=== PATIENT | male | born 1930 | race Caucasian/White ===

== ENCOUNTER 2022-03-24 08:34 | Inpatient (IN) | payer OTHER ==
[~2022-03-24] VITALS: Ht 177.8 cm; Wt 81.7 kg
[2022-03-24 10:09] LABS: Alanine Aminotransfer (ALT/SGP 371 U/L (12-78); Albumin, Blood 3.3 g/dL (3.4-5.0); Albumin/Globulin Ratio 0.9 (0.8-1.8); Alk Phos 787 U/L (50-136); Anion Gap 6 mmol/L (6-16); Aspartate Aminotrans (AST/SGOT 411 U/L (12-37); Bilirubin, Total 1.7 mg/dL (0.1-1.0); Blood Urea Nitrogen 33 mg/dL (8-24); Bun/Creatinine Ratio 35.1 (12.0-20.0); CO2, Blood 26 mmol/L (21-32); Calcium, Blood 8.7 mg/dL (8.5-10.1); Chloride, Blood 104 mmol/L (98-108); Creatinine, Blood 0.94 mg/dL (0.60-1.20); Globulin, Blood 3.8 g/dL (2.2-4.0); Glomerular Filtration Rate >60 (60-); Glucose, Blood 101 mg/dL (70-99); Sodium, Blood 136 mmol/L (136-145); Total Protein, Blood 7.1 g/dL (6.4-8.2)
[2022-03-24 10:10] LABS: BASOPHILS ABSOLUTE AUTO 0.06 K/mm3 (0.00-0.23); BASOPHILS PERCENT AUTO 1 % (0-2); EOSINOPHILS ABSOLUTE AUTO 0.05 K/mm3 (0.00-0.68); EOSINOPHILS PERCENT AUTO 0 % (0-6); Hematocrit 39.3 % (37.0-53.0); Hemoglobin 13.4 g/dL (13.5-17.5); IMMATURE GRAN ABSOLUTE AUTO 0.06 K/mm3 (0.00-0.10); IMMATURE GRAN PERCENT AUTO 1 % (0-1); LYMPHOCYTES ABSOLUTE AUTO 0.85 K/mm3 (0.84-5.20); LYMPHOCYTES PERCENT AUTO 7 % (21-46); MONOCYTES ABSOLUTE AUTO 1.47 K/mm3 (0.16-1.47); MONOCYTES PERCENT AUTO 11 % (4-13); Mean Corpuscular HGB 30.3 pg (26.0-34.0); Mean Corpuscular HGB Conc 34.1 g/dL (31.5-36.5); Mean Corpuscular Volume 89 fL (80-100); Mean Platelet Volume 11.3 fL (9.1-12.4); NEUTROPHILS ABSOLUTE AUTO 10.47 K/mm3 (1.96-9.15); NEUTROPHILS PERCENT AUTO 81 % (41-73); Platelet Count 253 K/mm3 (150-400); RDW Coefficient Variation 14.7 % (11.7-14.2); RDW Standard Deviation 48.1 fL (35.1-46.3); Red Blood Cell Count 4.42 M/mm3 (4.30-5.90); White Blood Cell Count 12.96 K/mm3 (4.00-11.30)
[2022-03-24 13:38] LABS: Source, Urine Clean Catch
[2022-03-24 13:59] LABS: Bilirubin, Urine Neg (Neg); Blood, Urine 1+ (Neg); Glucose Qualitative, Urine Neg (Neg); Ketones, Urine 1+ (Neg); Leukocyte Esterase, Urine Neg (Neg); Nitrite, Urine Neg (Neg); Protein, Urine 1+ (Neg); Urobilinogen, Urine 1+ (Normal)
[2022-03-24 14:15] LABS: Appearance, Urine Hazy (Clear); Color, Urine Yellow (P-Yellow)
[2022-03-24 14:18] LABS: Bacteria Not Seen /hpf; Squamous Epithelial Cells Few /hpf (Few); White Blood Cells, Urine Not Seen /hpf (0-5)
[2022-03-24] MEDS ORDERED: ZOCOR20 MG PO (18:38)
[2022-03-24] MEDS ORDERED: MULTIPLE VITAM1 EACH PO (18:39)
--- NOTE | 2022-03-24 19:23 | NUR ---
SHIFT SUMMARY PT ARRIVED ON THE UNIT AT APPROXIMATELY 1815 FROM ER, ABLE TO TRANSFER TO HIS BED c MINIMAL ASSISTANCE, REPORTS NO PAIN AT THIS TIME, REQUESTING WATER. ADMISSION COMPLETED, REPORT GIVEN TO BRADY MOBLEY.
--- NOTE | 2022-03-24 21:16 | NUR ---
SCD ORDER REVIEWED NO CURRENT ORDER.
--- NOTE | 2022-03-25 00:36 | NUR ---
ASSESSMENT PERFORMED ALONGSIDE FILAMENT TESTER. AGREE W/FILAMENT TESTER'S DOCUMENTED ASSESSMENT.
--- NOTE | 2022-03-25 04:20 | NUR ---
SHIFT SUMMARY PT NEW ADMIT AT SHIFT CHANGE. PT KAIBAB, HAS HEARING AIDES ON TABLE IN CUP. PT HAS BEEN NPO SINCE 0000 FOR SURGERY IN THE AM. AOX4, SBA, PLEASANT COOPERATIVE WITH CARE. NO ACUTE EVENTS THIS SHIFT. VSS. PT REPORTED MINMAL PAIN RELIEVED WITH POSITIOING. FLUIDS RUNNING, R AC IV. USES CALL LIGHT APROPRIATELY, URINAL AT THE BEDSIDE. WILL CONTINUE TO MONITOR.
[2022-03-25 04:51] LABS: Hematocrit 33.7 % (37.0-53.0); Hemoglobin 11.4 g/dL (13.5-17.5); Mean Corpuscular HGB 30.2 pg (26.0-34.0); Mean Corpuscular HGB Conc 33.8 g/dL (31.5-36.5); Mean Corpuscular Volume 89 fL (80-100); Mean Platelet Volume 10.8 fL (9.1-12.4); Platelet Count 214 K/mm3 (150-400); RDW Coefficient Variation 14.7 % (11.7-14.2); RDW Standard Deviation 48.1 fL (35.1-46.3); Red Blood Cell Count 3.78 M/mm3 (4.30-5.90)
[2022-03-25 05:20] LABS: Anion Gap 7 mmol/L (6-16); Blood Urea Nitrogen 32 mg/dL (8-24); Bun/Creatinine Ratio 29.6 (12.0-20.0); CO2, Blood 23 mmol/L (21-32); Calcium, Blood 7.6 mg/dL (8.5-10.1); Chloride, Blood 105 mmol/L (98-108); Creatinine, Blood 1.08 mg/dL (0.60-1.20); Glomerular Filtration Rate >60 (60-); Glucose, Blood 91 mg/dL (70-99); Potassium, Blood 4.8 mmol/L (3.5-5.5); Sodium, Blood 135 mmol/L (136-145)
--- NOTE | 2022-03-25 07:20 | NUR ---
PT VSS T/O NIGHT. PT DENIED ABD PAIN/N/V. IS VOIDING URINE PER BASELINE. PT HAS BEEN NPO POST MIDNIGHT FOR PLAN FOR SURGERY TODAY. PT REPOSITIONS SELF IN BED, SBA W/CANE OOB.
--- NOTE | 2022-03-25 10:23 | NUR ---
pt vomited after administration of oxycodone. medication disposed of.
--- NOTE | 2022-03-25 11:32 | NUR ---
RN STUDENT NOTE: CALLED DR PINEDA FOR PTS PAIN AND DISCOMFRT. PRN MEDS GIVEN PER EMAR. SUPPOSITORY GIVEN AND PT PASSED GAS 15 MIN AFTER. NO BM YET. NO CHANGE IN DISCOMFORT AT THIS TIME. WILL CONTINUE TO MONITOR.
--- NOTE | 2022-03-25 12:51 | NUR ---
PRN PAIN MED GIVEN PER EMAR. PT IS RESTING IN HIS ROOM W/O COMPLAINTS OF PAIN. WILL CONTINUE TO MONITOR.
--- NOTE | 2022-03-25 13:40 | NUR ---
Pt resting in bed upon arrival. Pt is A&OX4 and reports a tolerable 2/10 pain in his abdomen. Pt denies dyspnea and anxiety. Assessed Pt's understanding of current health issues. Listened as Pt discusses finding of potential cancer. Pt reports living a good long life and does not have any concerns regarding potential diagnosis. He reports if there are cancer treatments available he is willing to give it a try. He states if unable to tolerate treatment or becomes to painful then he plans to do hospice. Continued therapeutic listening. Pt reports living alone in [place] and does not having support close by. He reports his daughter has offered him to live with her but states he does not want to be a burden. Continued therapeutic listening. Discussed wishes for CPR and intubations. Pt states he does not want any heroic measures, and does not want CPR or intubation. Assisted Pt with completing POLST per his request. Pt gives this RN verbal permission to call his daughter Cindy to discuss case further. No other concerns reported at this time. Spoke with Dr Bradshaw and discussed case. Placed DNR order in [facility] per V/O from Dr Bradshaw. Palliative Care will obtain copy of POLST upon hospitalist signature and deliver to medical records.
--- NOTE | 2022-03-25 13:54 | NUR ---
PALLIATIVE CARE IN TO TALK WITH PT. PT UNDERSTANDING OF HIS POTENTIAL PROGNOSIS. WANTS TO BE CHANGED TO DNR. HIS MAIN WORRIES ARE ABOUT PAIN MANAGEMENT AND BEING A BURDEN TO HIS DAUGHTER.
--- NOTE | 2022-03-25 18:05 | NUR ---
Shift Summary: Pt came in for cholecystitis, not operable at this time due to potential cancer on galbladder, liver, abd wall, pancreas. Dr. Ferrera and Dr. Bradshaw to come up with care plan after results of biopsy and CT/MRI scans are back. Pt having occasional pain but will not ask for pain meds b/c he feels like a burden. He will take when offered. POLST filled out, changed to DNR, not having anxiety r/t diagnosis, pt states he is a peace with it. Sleeping off and on after pain managed. Not wanting to take anything PO, it exaserbates his pain and bloating. IV 0.9% NS hung and running.
--- NOTE | 2022-03-25 18:36 | NUR ---
THIS RN DID ASSESSMENT WITH STUDENT NURSESHAHRAM. AGREE WITH NOTES AND ASSESSMENTS.
--- NOTE | 2022-03-25 19:47 | NUR ---
TEMP: TEMP 101.8. COOL CLOTH PROVIDED. PT UNABBLE TO JEY ANY PO INTAKE. CALL PLACED TO HOSPITALIST, NEW ORDER FOR NM TYLENOL AND TO INC IVF TO 75ML/HR
--- NOTE | 2022-03-26 04:37 | NUR ---
SHIFT SUMMARY, PATIENT IS A/OX4, STATES "NO PAIN IF I DO NOT MOVE OR EAT," DENIES NEED FOR PAIN MEDICATION WHEN OFFERED. PATIENT HAD A 101.3 TEMP AND WAS MEDICATED WITH TYLENOL SUPPOSITORY, REASSESSED AT 98.8 WITH ORAL THERMOMETER. NO PO INTAKE THIS SHIFT DUE TO INCREASED NAUSEA AND PAIN DECLINED ALL PO MEDICATIONS DUE TO NAUSEA/PAIN. PATIENT ABLE TO VOID IN URINAL AT BEDSIDE, DARK COLORED URINE. ABSENT BOWEL SOUNDS ON ASSESSMENT, NO BM THIS SHIFT. OXYGEN PLACED TO MAINTAIN SATS ABOVE 90. PULSE OX IN PLACE. PATIENT REPOSITIONS SELF IN BED, USES CALL LIGHT APPROPRIATELY, VSS, WILL REPORT TO AM NURSE.
[2022-03-26 05:11] LABS: BASOPHILS ABSOLUTE AUTO 0.05 K/mm3 (0.00-0.23); BASOPHILS PERCENT AUTO 0 % (0-2); EOSINOPHILS PERCENT AUTO 1 % (0-6); Hemoglobin 11.8 g/dL (13.5-17.5); IMMATURE GRAN ABSOLUTE AUTO 0.06 K/mm3 (0.00-0.10); IMMATURE GRAN PERCENT AUTO 1 % (0-1); LYMPHOCYTES ABSOLUTE AUTO 0.77 K/mm3 (0.84-5.20); LYMPHOCYTES PERCENT AUTO 7 % (21-46); MONOCYTES PERCENT AUTO 14 % (4-13); Mean Corpuscular HGB 30.3 pg (26.0-34.0); Mean Corpuscular HGB Conc 33.7 g/dL (31.5-36.5); Mean Corpuscular Volume 90 fL (80-100); Mean Platelet Volume 11.3 fL (9.1-12.4); NEUTROPHILS PERCENT AUTO 77 % (41-73); Platelet Count 238 K/mm3 (150-400); RDW Coefficient Variation 14.5 % (11.7-14.2); RDW Standard Deviation 47.8 fL (35.1-46.3); White Blood Cell Count 11.78 K/mm3 (4.00-11.30)
[2022-03-26 05:47] LABS: Albumin, Blood 2.4 g/dL (3.4-5.0); Albumin/Globulin Ratio 0.8 (0.8-1.8); Bilirubin, Total 1.7 mg/dL (0.1-1.0); Bun/Creatinine Ratio 23.4 (12.0-20.0); Calcium, Blood 7.8 mg/dL (8.5-10.1); Creatinine, Blood 1.24 mg/dL (0.60-1.20); Globulin, Blood 2.9 g/dL (2.2-4.0); Potassium, Blood 4.6 mmol/L (3.5-5.5); Total Protein, Blood 5.3 g/dL (6.4-8.2)
--- NOTE | 2022-03-26 11:51 | NUR ---
Supportive visit this AM. Pt resting in bed upon arrival. Pt reports tolerating some PO intake. Offered therapeutic listening as Pt reports anticipation of biopsy. Reviewed plan of care with Pt. Pt reports pain in abdomen is starting to increase and is now 5/10. Ended visit to allow Pt to rest. Spoke with Primary RN Elliott and discussed case. Relayed Pt's pain. Palliative Care will remain available.
--- NOTE | 2022-03-26 14:49 | NUR ---
SHIFT SUMMARY: PT HAS BEEN NPO SINCE THIS MORNING AWAITING LIVER BIOPSY. BEFORE NPO STATUS, PATIENT WAS HANDELING JUICE, PO MEDICATION, AND WATER WELL AFTER BEING MEDICATED FOR PAIN. PT URINATING INDEPENDTLY WITH URINAL. URINE IS STARTING TO LIGHTEN. INTERMITTENT ABD PAIN RELIEVED WELL WITH IV DILAUDID. IV FLUIDS AND ANTIBIOTICS INFUSING SCHEDULED.
--- NOTE | 2022-03-26 16:10 | NUR ---
ASSUMED CARE OF PT FROM ITZ NEGRO.
--- NOTE | 2022-03-26 17:13 | NUR ---
COMFORT CARE PT TRANSITIONING TO COMFORT CARE PER ORDERS. MEDICATED PER ORDERS FOR PAIN. COOL COMPRESS PLACED TO FOREHEAD FOR FEVER. PT REC'D TYLENOL PER ORDERS EARLIER (SEE EMAR). PT RESTING W/EYES CLOSED. CALL LIGHT IN REACH.
--- NOTE | 2022-03-26 21:40 | NUR ---
PT HAS HAD TEMP WITH ROOM HEAT TURNED DOWN AND COOL CLOTH TO FOREHEAD.CONTINUED TO MONITOR AND TEMP STILL UP.GAVE TYLENOL PO.CONTINUED TO KEEP HEAT IN ROOM OFF AND REMOVED BLANKET FROM PT LEAVING SHEET FOR COVERING PER PT OK. PT REPORTS HAS BEEN SLEEPING COMFORTABLY.WILL CONT TO MONITOR COMFORT AND TEMPS.
--- NOTE | 2022-03-26 22:28 | NUR ---
PT TEMP DOWN TO 100.2 CONTINUED TO KEEP HEAT OFF AND BLANKETS OFF SAME WITH LAST CHECK.CONT COMFORTABLE.
--- NOTE | 2022-03-27 01:08 | NUR ---
PT REPORTING ROXINAL INEFFECTIVE FOR PAIN.ALSO STATES INITIALLY HAD BRIEF NAUSEA. DOES NOT WANT TO TAKE FURTHER ROXINAL.MED WITH DILAUDID 1 MG IV ONLY DUE TO RECENT DOSING OF ROXINAL.DENIES NAUSEA.
--- NOTE | 2022-03-27 03:34 | NUR ---
PT RECEIVED PERSONAL CARE AT 0315.DOMINGO AREA AND BOTTOM WASHED,UNDERWEAR TO CLEAN PULL UP,CHANGED GOWN.
--- NOTE | 2022-03-27 05:58 | NUR ---
SUMMARY PT VERB EFFECTIVE PAIN CONTROL WITH USE OF DILAUDID.
--- NOTE | 2022-03-27 08:20 | NUR ---
INSERTED MENDEZ CATH PT WAS UNABLE TO VOID, BS SHOWED 433 ML. PLACED 14F COUDE CATHETER, MAINTAINING STERILE TECHNIQUE. CATHETER DRAINING MARTÍNEZ COLORED URINE. PT TOLERATED WELL. DAUGHTER AT BEDSIDE.
--- NOTE | 2022-03-27 10:11 | NUR ---
Comfort Care Visit Multiple visits this AM. Supportive visit for Pt and daughter Cindy who is at bedside. Listened as Pt reports [facility] close to his daughter. Pt reports being at peace with his decision. Pt reports limitations of PO intake and pain occurs. Pt medicated for comfort. Assisted with completing new POLST for DNR and Comfort Measures Only. Daughter Cindy is in agreement with plan of care and goal for placement near her. Spoke with Caremanager Annalise and relayed Pt's wishes. Spoke with Primary RN Chelsea and discussed case. Palliative Care will remain available for symptom management and supportive visits.
--- NOTE | 2022-03-27 16:05 | NUR ---
pt sleeping RESPIRATIONS E/U.
--- NOTE | 2022-03-27 17:12 | NUR ---
SUMMARY PT COULD NOT VOID THIS AM AND BS SHOWED OVER 400 ML, PLACED MENDEZ PER ORDERS AND IS DRAINING MARTÍNEZ YELLOW URINE. PT MEDICATED PER ORDERS FOR PAIN THIS AM AND HAS SLEPT T/O DAY. DOES NOT APPEAR TO BE IN ANY DISTRESS. DAUGHTER IN TODAY, STATED WILL RETURN TOMORROW.
--- NOTE | 2022-03-28 01:34 | NUR ---
PT HAVING ANXIETY WELLL PAIN.PT IS HAVING SOME APNEA NOTED WITH HIGHER DOSES DILAUDID ,BUT NEEDING MEDS FOR COMFORT.I CALLED DR SOLITARIO AND RECEIVED ORDER FOR ATIVAN FOR ANXIETY.ALTHOUGH PT IS COMFORT CARE ORDERED, I DISCUSSED WITH DOCTOR MY CONCERNS REGARDING APNEA PERIODS AND CONCERNS DAUGHTER MAY NEED TO BE CALLED TO MAKE AWARE OF RISK TO RESPIRATIONS IN REGARDS TO MEDS FOR COMFORT. DOCTOR AGREED FOR CALL TO DAUGHTER.PT ALSO WANTED TO HAVE DAUGHTER CALLED. I CALLED DAUGHTER GUANAKITO AND ADVISED OF IMMEDIATE RISKING CEASE OF BREATHING WITH MEDS. DRAGAN VERB UNDERSTANDING OF RISK AND IS ACCEPTING OF RISK AND FEELS IT IS MOST IMPORTANT TO KEEP PT COMFORTABLE. MED IV WITH ATIVAN.PT REPORTED FEELING BETTER,NOW SLEEPING SNORING.WAITING DAUGHTER ARRIVAL TO BEDSIDE.
--- NOTE | 2022-03-28 06:44 | NUR ---
SUMMARY PTS DAUGHTER AT BEDSIDE WHILE PT SLEEPING.PT NOW AWAKE.HAS SO FAR DECLINED FURTHER MEDS.
--- NOTE | 2022-03-28 08:06 | NUR ---
PATIENT REPORTED "WANTING MY MEDS!" THIS MORNING. BOOSTED PATIENT IN BED AND GAVE 0.5 OF ATIVAN IV. PATIENT HAS BEEN ASLEEP WITH EVEN/EQUAL RESPIRATIONS. CALL LIGHT WITHIN REACH. DAUGHTER AT BEDSIDE.
--- NOTE | 2022-03-28 17:36 | NUR ---
PATIENT IS ASLEEP WITH EVEN/EQUAL RESPIRATIONS. DAUGHTER AT BEDSIDE AND STATED "I DON'T THINK HE NEEDS ANYTHING AT THIS TIME. HE SEEMS TO BE COMFORTABLE". CALL LIGHT WITHIN REACH.
--- NOTE | 2022-03-28 17:41 | NUR ---
PATIENT IS ASLEEP WITH EVEN/EQUAL RESP. DAUGHTER AT BEDSIDE AND STATED "I DON'T THINK HE NEEDS ANYTHING AT THIS TIME". CALL LIGHT WITHIN REACH.
--- NOTE | 2022-03-28 17:42 | NUR ---
SHIFT SUMMARY: COMFORT CARE PATIENT SEEMS TO BE MOST COMFORTABLE WITH 0.5 OF ATIVAN AND 2MG OF DILAUDID FOR PAIN. MENDEZ IS DRAINING PER GRAVITY WITH DARK COLORED URINE. PATIENT WAS GIVEN A BED BATH BY THIS NURSE AND THE ASSEMBLER FAUCETS. PATIENT TOLERATED ROLLING SIDE TO SIDE WELL. PATIENT IS [place] SPEAKING IN A DEEPER VOICE OR GETTING CLOSE TO HIS EAR IS BEST FOR HIM. DAUGHTER WAS AT HIS BEDSIDE FOR MOST OF THE SHIFT. SHE SAID SHE WOULD BE BACK IN THE MORNING. PATIENT IS RESTING IN BED WITH CALL LIGHT IN REACH.
--- NOTE | 2022-03-28 17:42 | NUR ---
PATIENT IS ASLEEP WITH EVEN/EQUAL RESP. CALL LIGHT WITHIN REACH.
--- NOTE | 2022-03-29 04:08 | NUR ---
SHIFT SUMMARY NO ACUTE CHANGES OVERNIGHT. PT APPEARS PAINFUL INTERMITTENTLY. HE WOULD MOAN WHEN EXPRESSING PAIN. HE ANSWERS APPROPRIATELY, WITH SOME CONFUSION INTERMITTENTLY. AO TO SELF. PAIN MANAGED WITH DILAUDID WITH 1-2MG. KPAD PLACED IN ABD WELL TO RELIEF PAIN. REPOSITIONED Q2. O2 NASAL CANNULA SET TO 9-10L FOR COMFORT. URINE REMAIN DARK [place]. SAT UP WHEN ATTEMPTING TO DRINK WATER DUE TO RISK ASPIRATION. PT TENDS TO COUGH WHEN SWALLOW. LEMON SWAB WITH ICE WATER AND ORAL SPONGE TO MOISTEN MUCOSA. WHEN PT TRIES TO CLEAR THROAT, TENDS TO COUGH AND PAIN INCREASES. WILL CONTINUE TO MONITOR PT. AND PROVIDE COMFORT UNTIL WE HAVE A PLACEMENT FOR HIM (HOSPICE). WILL PROVIDE REPORT TO ONCOMING NURSE.
--- NOTE | 2022-03-29 12:31 | NUR ---
COMFORT CARE ASSESSMENT PT GIVEN 2MG DILAUDID VIA SLOW IV PUSH. PT REPOSITIONED TOWARD HIS L SIDE W/ A PILLOW PLACED UNDER HIS R HIP AND TORSO. PT AGREED WHEN ASKED IF COMFORTABLE. PT FOUND TO BE SLEEPING APPROX 10 MINUTES LATER.
--- NOTE | 2022-03-29 14:23 | NUR ---
COMFORT CARE ASSESSMENT PT IS RESTING PEACEFULLY W/ EVEN RESPIRATIONS. PT EASILY AROUSED W/ VERBAL STIMULATION. PT TURNED TO RELIEVE PRESSURE. PT'S DAUGHTER IS AT BEDSIDE.
--- NOTE | 2022-03-29 17:18 | NUR ---
COMFORT CARE ASSESSMENT PT REPOSITIONED AND BOOSTED IN BED. PT WAS FOUND TO BE WARM TO THE TOUCH, WET WASH CLOTH APPLIED BY FAMILY. PT DID NOT APPEAR TO BE IN ANY DISTRESS OR OBVIOUS PAIN.
--- NOTE | 2022-03-29 18:30 | NUR ---
SHIFT SUMMARY PT RESTED IN ROOM THROUGHOUT MOST OF THE SHIFT. PT WAS OCCASIONALLY AWAKE AND WOULD INTERACT W/ STAFF AND HIS DAUGHTER. PT'S DAUGHTER WAS ABLE TO GIVE HIM THE OCCASIONAL SMALL BITE OF JELLO. PT'S FENTANYL PATCH REMOVED AND REPLACED @ 1655. PT TURNED Q2 T/O DURATION OF SHIFT. PT RESTING W/ DAUGHTER AT BEDSIDE.
--- NOTE | 2022-03-29 18:33 | NUR ---
PT TURNED. PT NOTED TO BE WARM TO THE TOUCH, WET WASHCLOTH PLACED ON PT'S HEAD BY PT'S DAUGHTER.
--- NOTE | 2022-03-30 04:20 | NUR ---
SHIFT SUMMARY PT APPEARS MORE ALERT AND INTERACTIVE LAST NIGHT. HE SLEPT GOOD. PT APPEARS TO BE PAINFUL INTERMITTENTLY IN HIS ABD ESPECIALLY WHEN COUGHING AND CLEARING HIS THROAT. PT HAS PRODUCTIVE COUGH. PAIN MANAGED WITH DILAUDID 2MG GIVEN TWICE T/O THE SHIFT. PT ALSO ENJOYS EATING POPSICLE. DAUGHTER AT BEDSIDE. WILL CONTINUE TO MONITOR AND WILL PROVIDE REPORT TO ONCOMING NURSE.
--- NOTE | 2022-03-30 10:08 | NUR ---
Comfort care visit - Pt feels warm. Cool cloth on forehead refreshed. Kpad had already been removed, room temp lowest setting. Pt appears calm and comfortable until hiccoughs started or clearing secretions. With cough or clearing throat, pt moans, grimaces, winces. Report to RN who immediately brought rx per eMAR for pain and then nausea due to nasea with IV dilaudid. Dr freire and comfort care order set and meds discussed. VO obtained to d/c IV pain and anxiety meds to be replaced with sq, PO, [place], topical routes of comfort medications due to no IV access avail once pt d/c'd with hospice and we do not want to cause pain with restart of periph IV. Pt is alert, profoundly fatigued and weak, barely audible verbalizations with much effort. No family at bedside currently but they have been here most of the time per staff. Pt taking only sips and minimal PO food intake. Pastor cath with good output of dk kate urine in collection bag. Plan daily comfort care visits.
--- NOTE | 2022-03-30 10:35 | NUR ---
PT COUGHING/HICUPS WHILE PALIATIVE CARE RN IN ROOM, PT GRIMACING-MEDICATED WITH 2MG DILAUDID PER EMAR. PAIN MEDICATION SWITCHED TO ROXANOL FOR FUTURE DOSES. FENTYNAL PATCH TO L CHEST PRESENT. PT APPEARED TO BE GAGGING FOLLOWING ADMINISTRATION OF DILAUDID, MEDICATED WITH 4MG ZOFRAN. ORAL CARE DONE BY RN AT THIS TIME. PT REFUSED REPOSITIONING AT THIS TIME.
--- NOTE | 2022-03-30 12:35 | NUR ---
PT APPEARS TO BE RESTING COMFORTABLY AT THIS TIME. PTS DAUGHTER AT BEDSIDE REQUESTS NOT TO WAKE FOR PERSONAL CARE.
--- NOTE | 2022-03-30 19:06 | NUR ---
PT WITH INCREASED PAIN FOLLOWING ADMINISTRATION OF ROXANOL. MD NOTIFIED, ORDER FOR DILAUDID 2MG Q4. PT APPEARS TO BE MORE COMFORTABLE AT THIS TIME. DAUGHTER AT BEDSIDE. PLAN FOR HOSPICE CARE AT [place].
--- NOTE | 2022-03-30 23:40 | NUR ---
2200: REPOSITIONED PT, PT WAS SLEEPING, APPEARS COMFORTABLE. HARD TO AROUSE, DROWSY, UNABLE TO FOLLOW COMMANDS AND CONFUSED. SLOW TO RESPOND. PT SOUNDS MORE QUIET TONIGHT COMPARED FROM LAST NIGHT. PT'S DAUGHTER AT BEDSIDE, AWARE OF THE SITUATION. WILL CONTINUE TO MONITOR.
--- NOTE | 2022-03-31 02:11 | NUR ---
0210: PT AWAKE AT TIMES. NON RESPONSIVE. APNEIC. NAIL BEDS ARE CHAMORRO. WARM TO TOUCH. INTERMITTENTLY MOANS AND COUGH WITH SECRETIONS. ATROPINE SL AND DILAUDID 2MG WAS GIVEN. DAUGHTER AT BEDSIDE BUT WILL DRIVE BACK TO PT'S HOME TO SETTLE SOME ERRANDS. SHE SAID THAT SHE'LL COME BACK AT 0700 AM. NOTIFY CHARGE AND NURSING HUMAN PERFORMANCE PROFESSOR REGARDING PT'S CONDITION TOWARDS END OF LIFE STAGE.
--- NOTE | 2022-03-31 14:42 | NUR ---
DAUGHTER AT BEDSIDE.
--- NOTE | 2022-03-31 15:33 | NUR ---
PT . DAUGHTER REACHED OUT TO STUDENT RN, ADRIENNE AND STATED PT WAS NOT BREATHING VERY WELL. ADRIENNE REACHED OUT TO THIS RN. WHEN ENTERED ROOM, FOUND PT TOOK 2-3 AGONAL BREATHS AND THEN STOPPED BREATHING. COULD NOT AUSCULTATE HEARTBEAT. VERIFIED W/RADON INSPECTOR. NURSING CROWN BUFFER NOTIFIED. DAUGHTER AT BEDSIDE. TOD 1527. DR ALCANTAR NOTIFIED.
--- NOTE | 2022-03-31 16:06 | NUR ---
DONOR + MORTUARY CALLS DONOR LINE CALLED, PT NOT DONOR STATUS R/T AGE. [facility] NOTIFIED AT 1605. MORTUARY IS CURRENTLY MEETING WITH FAMILY AND WILL COME OVER AFTER TO OBTAIN BODY.
== END 2022-03-31 18:37 | DRG 374 ==
LOC: ER 08:34 → SURS 17:59 → MEDS 17:59 → SURS 18:17
PROVIDERS: Emergency Medicine; Internal Medicine; ADMIT Internal Medicine
DX: C78.6 Secondary malignant neoplasm of retroperitoneum and peritoneum (principal); K55.059 Acute (reversible) ischemia of intestine, part and extent unspecified; C78.7 Secondary malignant neoplasm of liver and intrahepatic bile duct; N13.30 Unspecified hydronephrosis; Z51.5 Encounter for palliative care; E78.5 Hyperlipidemia, unspecified; K59.09 Other constipation; M75.101 Unspecified rotator cuff tear or rupture of right shoulder, not specified as traumatic; E78.00 Pure hypercholesterolemia, unspecified; Z98.1 Arthrodesis status; N40.1 Benign prostatic hyperplasia with lower urinary tract symptoms; Z98.890 Other specified postprocedural states; Z90.49 Acquired absence of other specified parts of digestive tract
CPT/HCPCS: 36415; 71045; 74178; 78226; 80048; 80053; 81001; 82105; 83605; 83690; 85025; 85027; 93005; 93010; 94760; 96374; 96375; 96376; 99285-25; A9270; A9537; J0694; J1170; J1885; J2060; J2405; J3010; J7030; Q9967